=== PATIENT | female | born 1995 | race Caucasian/White ===

== ENCOUNTER 2022-09-08 13:22 | Emergency (ER) | payer MEDICAID ==
[~2022-09-08] VITALS: Ht 165.1 cm; Wt 82.0 kg
[2022-09-08 13:25] VITALS: BP 106/60
[2022-09-08] MEDS ORDERED: LEVETIRACETAM 500MG PREMIX 100 ML IV ONE (14:00)
[2022-09-08 14:25] LABS: BASOPHILS % 0.6 % (0.0-2.0); EOSINOPHILS % 3.1 % (0.0-5.0); HEMOGLOBIN. 11.7 g/dL (12.0-16.0); LYMPHOCYTES % 23.4 % (20.0-50.0); MEAN CORPUSCULAR HEMOGLOBIN 25.9 pg (28.0-32.0); MEAN CORPUSCULAR VOLUME 77.2 fL (81.0-99.0); MEAN PLATELET VOLUME 8.6 fl (7.4-10.4); MONOCYTES % 4.8 % (2.0-8.0); NEUTROPHILS % 68.1 % (40.0-76.0); PLATELET 233 x1000/uL (130-400); RED BLOOD CELL COUNT 4.53 mill/uL (4.2-5.4); RED CELL DISTRIBUTION WIDTH 17.8 % (11.6-14.6)
[2022-09-08 14:32] LABS: CHLORIDE 112 mEq/L (98-107)
[2022-09-08 14:41] LABS: ETHANOL BLOOD < 10 mg/dL
[2022-09-08 14:47] LABS: *AMPHETAMINES SCREEN URINE NEGATIVE (NEGATIVE); *BARBITURATES SCREEN URINE NEGATIVE (NEGATIVE); *BENZODIAZEPINES SCREEN URINE NEGATIVE (NEGATIVE); *COCAINE SCREEN URINE NEGATIVE (NEGATIVE); METHADONE URINE SCREEN NEGATIVE (NEGATIVE); OPIATES URINE SCREEN NEGATIVE (NEGATIVE); PHENCYCLIDINE URINE SCREEN NEGATIVE (NEGATIVE)
[2022-09-08 14:48] LABS: CANNABINOID URINE SCREEN PRESUMTIVE POSITIVE (NEGATIVE)
[2022-09-08 14:57] LABS: HCG SCREEN NEGATIVE
[2022-09-08] MEDS ORDERED: ASPIRIN 325MG EC TABLET PO ONE (16:30)
== END 2022-09-08 23:58 | disposition left against medical advice (07) ==
LOC: ER 13:22 → CANBEDREQ 09-09 07:54
DX: G40.909 Epilepsy, unspecified, not intractable, without status epilepticus (principal); R94.39 Abnormal result of other cardiovascular function study; J45.909 Unspecified asthma, uncomplicated; Z04.1 Encounter for examination and observation following transport accident
CPT/HCPCS: 36415; 70450; 71045; 80053; 80305; 80320; 84484; 84703; 85025; 93005; 96365; 96366; 99285; J1953; G0480